=== PATIENT | female | born 1990 | race Caucasian/White ===

== ENCOUNTER 2023-10-25 09:23 | Outpatient (RCR) | payer BC, SELFPAY ==
--- NOTE | ~2023-10-25 | US_ITS ---
EXAMINATION: US OB follow up DATE: 10/25/2023 11:38 INDICATION: Passed due dates TECHNIQUE: Real-time ultrasound of the pelvis was performed. The interpreting radiologist was not pre sent for the study. COMPARISON: None. FINDINGS: There is a single living fetus in vertex presentation. The placenta is posterior. heart rate i s 140 beats per minute (bpm). The amniotic fluid index is 11.8 cm, which is normal. The following biometric data were obtained: BPD: 9.6 cm -> 39 weeks 1 days Head circumference: 34.8 cm -> 40 weeks 3 days Abdominal circumference: 35.8 cm -> 39 weeks 5 days Femur length: 7.8 cm -> 39 weeks 6 days These measurements are concordant. Head circumference to abdominal circumference ratio: 0.97 (normal range 0.90-1.03). Estimated weight: 3879 g (+/-) 582 g or 8 lbs. 9 oz. (+/-) 1lb. 5 oz. IMPRESSION: 1. Single living fetus in vertex presentation with heart rate of 140 bpm. 2. Normal amniotic fluid index of 11.8 cm 3. Estimated weight is 70th percentile by Hadlock criteria when 10/23/2018 is used as the estima juanis date of delivery (BHAVESH). Please correlate with clinical information or earlier ultrasounds for mos t accurate BHAVESH. Reviewed, dictated and finalized at location A. IMPRESSION: 1. Single living fetus in vertex presentation with heart rate of 140 bpm. 2. Normal amniotic fluid index of 11.8 cm 3. Estimated weight is 70th percentile by Hadlock criteria when 10/23/2018 is used as the estimated date of delivery (BHAVESH). Please correlate with clinica l information or earlier ultrasounds for most accurate BHAVESH.
[2023-10-25 11:50] VITALS: BP 109/72; PULSE 95
== END 2024-01-23 23:59 | disposition home or self-care (01) ==
LOC: ANHOBOP 09:23
PROVIDERS: Visit Provider Obstetrics & Gynecology
DX: O48.1 Prolonged pregnancy (principal); Z3A.40 40 weeks gestation of pregnancy
CPT/HCPCS: 59025; 76816

== ENCOUNTER 2023-11-01 04:59 | Inpatient (IN) | payer BC, SELFPAY ==
[2023-11-01] VITALS (119 sets, daily range): BP systolic 78–127; BP diastolic 51–94; PULSE 62–101; RESP 16–20; TEMP 36.3–37.4; O2SAT 95–100; BMI 31.5
[2023-11-01] MEDS: AMPICILLIN 2 GM/NS 100 ML 2 GM/100 ML BAG IVPB (05:50)
[2023-11-01] MEDS: OXYTOCIN 30 UNITS/NS 500 ML 30 UNITS/500 ML BAG IV CONT (05:50)
[2023-11-01] MEDS: LACTATED RINGERS 1,000 ML 125 ML IV CONT ×2 (05:52→07:24)
--- NOTE | 2023-11-01 05:59 | LDADM ---
This patient, Seema Maxwell, was admitted to Labor/Delivery/Recovery 104 on 11/01/23 at 04:59. Plans for labor, pain management and were discussed with patient. Patient/family oriented to hospital policies and general routines including ID bracelet, bed and alarms, visiting hours, pain management, procedures, bathroom and other care routines, personal items, smoking policy, room service/diet and guest tray routines, infant security routines, and visiting hours. Patient/Family are encouraged to report perceived risks to care and to ask questions if they do not understand what they are told or what they should do. See OBIX for further documentation.
[2023-11-01 06:04] LABS: Basophils Percent Auto 0.4 % (0.2-1.2); Eosinophils Absolute Auto 0.2 K/mm3 (0-0.3); Eosinophils Percent Auto 1.5 % (0-4.4); Hematocrit 34.7 % (37.0-47.0); Hemoglobin 11.3 g/dL (12.0-15.0); Immature Granulocyte Absolute 0.03 K/mm3 (0.00-0.031); Immature Granulocyte Percent A 0.3 % (0-0.5); Lymphocytes Absolute Auto 2.02 K/mm3 (0.9-3.2); Lymphocytes Percent Auto 20.7 % (18.3-44.2); Mean Corpuscular HGB Conc 32.6 g/dl (32-36); Mean Corpuscular Hemoglobin 28.2 pg (26-34); Mean Corpuscular Volume 86.5 fl (80-100); Mean Platelet Volume 10.7 fl (7.4-10.4); Neutrophils Absolute Auto 6.5 K/mm3 (1.3-6.7); Neutrophils Percent Auto 67.1 % (45.5-73.1); Platelet Count Result 215 k/mm3 (150-375); Red Blood Count 4.01 M/mm3 (4.2-5.4); Red Cell Distribution Width 13.2 % (11.5-14.5); White Blood Count 9.8 K/mm3 (4.5-10.0)
--- NOTE | 2023-11-01 07:20 | P.PNAN_ITS ---
Anes - Eval Pre Procedure Procedure: labor epidrual Date/Time: 11/01/23 07:20 Surgeon: Anat Pre Op Diagnosis: Labor pain Patient Data Age: 33 Gender: F Height: 1.73 m Weight: 94 kg Last Vital Signs Temp 36.6 C 11/01/23 07:00 Pulse 91 11/01/23 07:15 BP 115/79 11/01/23 07:15 O2 Del Method Room Air 11/01/23 05:58 Allergies Allergy/AdvReac Type Severity Reaction Status Date / Time No Known Allergies Allergy Verified 09/26/23 14:36 Home Medications Medication Instructions Recorded Confirmed Type prenat.vits,vish,ncr-iphu-bailq 1 tablet PO DAILY 09/26/23 10/25/23 History Laboratory Tests 11/01/23 05:54 WBC 9.8 K/mm3 (4.5-10.0) RBC 4.01 L M/mm3 (4.2-5.4) Hgb 11.3 L g/dL (12.0-15.0) Hct 34.7 L % (37.0-47.0) MCV 86.5 fl (80-100) MCH 28.2 pg (26-34) MCHC 32.6 g/dl (32-36) RDW 13.2 % (11.5-14.5) Plt Count 215 k/mm3 (150-375) MPV 10.7 H fl (7.4-10.4) Immature Gran % (Auto) 0.3 % (0-0.5) Neut % (Auto) 67.1 % (45.5-73.1) Lymph % (Auto) 20.7 % (18.3-44.2) [place] % (Auto) 10.0 H % (2.6-8.5) Eos % (Auto) 1.5 % (0-4.4) Baso % (Auto) 0.4 % (0.2-1.2) Lymph # (Auto) 2.02 K/mm3 (0.9-3.2) [place] # (Auto) 1.0 H K/mm3 (0.1-0.6) Eos # (Auto) 0.2 K/mm3 (0-0.3) Baso # (Auto) 0.0 K/mm3 (0.0-0.1) Abs Immat Gran (auto) 0.03 K/mm3 (0.00-0.031) Absolute Neuts (auto) 6.5 K/mm3 (1.3-6.7) Absolute Nucleated RBC 0.000 K/mm3 (0.0-0.012) Nucleated RBC % 0.0 % (0.0-0.2) RPR Pending : gestational age (BHAVESH 10/24/23) Patient hx anesthesia problems: none Family hx anesthesia problems: none Results Review: All pre-operative results and documents have been reviewed as part of the pre- operative evaluation. [facility] Family History Family History Other Patient denies significant medical history Social History Social History Smoking status: Never smoker Substance use: never Do You Feel Safe in your Home?: Yes Lack of Transportation: No Lack of Food: Never True Current Housing: I Have Housing Concerned About Future Housing: No Difficulty Paying Gas/Electric Bills: No Difficulty Paying for Meds: No Currently Unemployed: No Education: Bachelor's Degree Difficulty w/ Childcare or Family Care: No Spiritual care concerns: No Exam Day of Procedure 11/01/23 07:20 Heart: regular rate and rhythm Lungs: normal air movement Neurological: alert and oriented
--- NOTE | 2023-11-01 08:36 | WPDOBADMIT ---
Obstetrics - Admit Note Admission Note: record reviewed. Additions to the history and/or subsequent changes in the physical findings follow. 33 y/o at 41 1/7 weeks here for induction of labor. Oxytocin per protocol. Comfortable with epidural. GBS pos, receiving ampicillin. AVSS NST reactive TOCO: contractions every 2-3 min ABD soft, nontender, gravid, vertex EXT nontender Cervix 5/90/-2. AROM with scant clear fluid. Vertex. A: IUP at 41 1/7 weeks here for induction of labor. GBS pos. P: Oxytocin. Anticipate . Ampicillin.
[2023-11-01] MEDS: AMPICILLIN 1 GM/NS 50 ML 1 GM/50 ML BAG IVPB (09:58)
--- NOTE | 2023-11-01 11:47 | PM.OBPRVD ---
OB - Vaginal Delivery Note Procedure Delivery date: 11/01/23 Events: Positive Group B Strep (GBS) Induction method: Per Pitocin Protocol Delivery augmentation: Rupture of Membranes Delivery monitor: External FHT and External Uterine Route of delivery: Episiotomy description: None Laceration Description: Periurethral (right) and Perineal - 2nd Degree Delivery repair: vicryl (3-0) Specimen: Yes (Cord blood) Quantitative Blood Loss (ml): 160 Anesthesia type: Epidural Disposition: PACU Complications: None Narrative: 33 y/o at 41 1/7 weeks gestation who presented to the hospital for induction of labor. Oxytocin was administered intravenously. Amniotomy was performed with return of clear fluid. She received an epidural for pain control. Her labor progressed and her cervix dilated completely. She pushed with good effort and delivered the 's head to the perineum. A loose nuchal cord was splinted. The body delivered and the cord was reduced. The nose and mouth were bulb suctioned. After a delay, the cord was clamped and cut. The was handed off the field. Cord blood was collected. The placenta delivered spontaneously and was grossly normal in appearance. The usual 3 vessel cord was noted. A second degree midline perineal laceration was sustained. This was reapproximated using 3 0 Vicryl in the usual layered fashion. A single, figure of eight suture of the same material was used to reapproximate a shallow right periurethral laceration. Excellent hemostasis resulted as did excellent reapproximation of the normal anatomy. Needle and instrument counts were correct. The patient was taken to recovery room in stable condition. The infant went to the nursery in stable condition. I was present and scrubbed for the entire delivery. [place] Baby Date of : 11/01/23 Time of : 11:25 Weeks of gestation at delivery: 41 gender: Male Weight (pounds): 8 Weight (ounces): 12 presentation: vertex position: Right Occiput Anterior Placenta delivery description: Spontaneous and Normal Configuration Cord Vessel Description: 3 Vessels, Nuchal Cord (x1), Loose and Delayed Cord Clamping score one minute: 9 score five minutes: 9
[2023-11-01] MEDS: OXYTOCIN 30 UNITS/NS 500 ML 30 UNITS/500 ML BAG 125 UNITS IV CONT (11:53)
--- NOTE | 2023-11-01 12:10 | PM.OBDSVD ---
DS: Admitting Diagnosis Discharge Date 11/02/23 Admitting Diagnosis IUP at 41 1/7 weeks DS: Discharge Diagnosis Discharge Diagnosis (1) (normal spontaneous vaginal delivery): Code(s): O80 - Encounter for full-term uncomplicated delivery Status: Acute OB - DS: Summary OB Procedures : None OB Procedures Intrapartum: Spontaneous Vag Delivery and GBS prophylaxis OB Procedures: : None Peripartum Data Laceration Description: Periurethral (right) and Perineal - 2nd Degree Episiotomy description: None Time Spent with Patient Time attestation: Total time spent providing and/or coordinating discharge services: DS: Data Data Completed and Pending Labs on day of discharge: Labs from last 24 hours 11/01/23 05:54 WBC 9.8 RBC 4.01 L Hgb 11.3 L Hct 34.7 L MCV 86.5 MCH 28.2 MCHC 32.6 RDW 13.2 Plt Count 215 MPV 10.7 H Immature Gran % (Auto) 0.3 Neut % (Auto) 67.1 Lymph % (Auto) 20.7 [place] % (Auto) 10.0 H Eos % (Auto) 1.5 Baso % (Auto) 0.4 Lymph # (Auto) 2.02 [place] # (Auto) 1.0 H Eos # (Auto) 0.2 Baso # (Auto) 0.0 Abs Immat Gran (auto) 0.03 Absolute Neuts (auto) 6.5 Absolute Nucleated RBC 0.000 Nucleated RBC % 0.0 RPR Pending Blood Type O Positive Antibody Screen Negative Discharge Plan Discharge Attending physician on discharge: Rich Coppola Consulting providers: Staci Vazquez; Neha Hall Discharging Clinician: Rich Coppola Patient Disposition: Home, Self-Care Activity: may shower, no straining and pelvic rest Diet: regular Wound Care Instructions: follow printed instructions Discharge Instructions: Education: Mom and Baby Guide Given to: Mother Follow-Up: Call your delivering provider's office for an appointment to be seen in: 6 Weeks Mom and baby should come to the [facility] for the follow-up appointment. Appointment Date/Time: November 03, 2023 at 11:00 am What to expect at your follow-up visit: Physical Assessment Call [phone] if you are unable to keep your appointment time. BREAST CARE: * Wear a snug supportive bra. * For engorgement discomfort: Breast Feeding: * Apply warm moist washcloths * Express milk as needed to relieve engorgement * Wear loose clothing Bottle Feeding: * May apply ice packs * For sore nipples: * Identify correct latch-on * Apply warm moist washcloths before and after nursing * Air dry nipples after nursing * May apply Lansinoh cream to nipples EPISIOTOMY/PERINEAL CARE: * Until bleeding stops, use your nataly bottle after urinating * Change your pad frequently throughout the day * You may take sitz baths several times a day (fill your bathtub with warm water and soak for 20 minutes.) Do NOT bathe in the water * No tub baths until seen by your physician - You may shower ACTIVITY: * Rest as much as possible. * Do not exercise or lift anything heavier than your baby (such as laundry or other children.) * Avoid stairs or driving as much as possible. * Do not put anything into the vagina. No douching, tampons, or sexual activity until seen by physician. NOTIFY PHYSICIAN IF YOU HAVE ANY QUESTIONS OR IF ANY OF THE FOLLOWING SYMPTOMS OCCUR: * If your episiotomy or incision becomes red, swollen, or more painful than what you have experienced in the hospital. * If your vaginal bleeding becomes foul smelling. * If your vaginal bleeding becomes more heavy than a period or if your bleeding changes from pink to bright red. However, you may pass an occasional walnut-sized clot once or twice for the first week . * If you experience a sharp, shooting pain in you calves. * If you discover a hard, reddened area on your breast or if you experience flu-like symptoms. DIET: * Eat regular, well-balanced meals. * Drink plenty of fluids daily. If
[2023-11-01] MEDS: IBUPROFEN 600 MG TABLET PO ×2 (13:34→21:12)
[2023-11-01] MEDS: WITCH HAZEL 40 PADS 1 PAD TOPICAL (13:34)
[2023-11-01] MEDS: BENZOCAINE 20% AER SPR (*SP) 56 GM CAN 1 SPRAY TOPICAL (13:34)
--- NOTE | 2023-11-01 14:53 | OBPPTRN ---
1430-Patient transferred to post room #292 via wheelchair. Support person present. Oriented to unit, room, information board, rooming in, admission packet and security measures. Patient verbalizes understanding.
[2023-11-01] MEDS: DOCUSATE SODIUM 100 MG CAPSULE PO (15:16)
[2023-11-01] MEDS: ACETAMINOPHEN 325 MG TABLET 650 MG PO (15:16)
[2023-11-01 18:29] LABS: Rapid Plasma Reagin Non-Reactive (NonReactive)
[2023-11-02] MEDS: IBUPROFEN 600 MG TABLET PO ×2 (03:49→09:53)
[2023-11-02 04:14] VITALS: BP 107/71; PULSE 73; RESP 18; TEMP 37.2; O2SAT 98
[2023-11-02 05:21] LABS: Hemoglobin 10.5 g/dL (12.0-15.0)
[2023-11-02] MEDS: ACETAMINOPHEN 325 MG TABLET 650 MG PO (05:46)
--- NOTE | 2023-11-02 06:57 | PM.OBPNVD ---
OB - PN: Subj Subjective Date/time seen: 11/02/23 06:57 Patient comments: no complaints and pain well controlled baby status: doing well and nursing well OB - PN: Obj Data Labs 11/02/23 04:03 Labs: Laboratory Results - last 24 hr 11/01/23 11/02/23 05:54 04:03 Hgb 10.5 L Hct 33.0 L RPR Non-reactive Blood Type O Positive Antibody Screen Negative OB - PN A/P Plan day: 1 Plan: routine care, discharge home and follow up 6 weeks Time Spent With Patient Time: Total time spent is greater than 50% in coordination of care (as documented) at patient's floor/unit and/or counseling patient: Time with patient: less than 15 minutes Exam Const: General: cooperative, healthy appearing and comfortable Nutritional Appearance: average body habitus Orientation/consciousness: oriented to person, oriented to place and oriented to time Resp: Effort & Inspection: normal respiratory effort GI: Inspection: normal to inspection
--- NOTE | 2023-11-02 07:40 | WPDANLDPN2 ---
Anes-Prog Note L&D Date/Time: 11/02/23 07:40 Comfortable throughout: labor and delivery Neuraxial method: epidural Epidural/Spinal procedure site: clean & non-tender Neuro status: Neuro function grossly intact. Cardiovascular status: normal Respiratory status: normal Airway patency: baseline Mental status: baseline Post-Op hydration status: normal Vital Signs: Last Vital Signs Temp 37.2 C 11/02/23 04:14 Pulse 73 11/02/23 04:14 Resp 18 11/02/23 04:14 BP 107/71 11/02/23 04:14 Pulse Ox 98 11/02/23 04:14 O2 Del Method Room Air 11/01/23 15:30 Pain score (VAS): 0/10 I/O: Intake & Output 11/01/23 11/01/23 11/02/23 15:59 23:59 07:59 Output Total 210 Balance -210 Post-procedural complaints: none Patient feedback: Patient satisfied with anesthetic care.
[2023-11-02] MEDS: DOCUSATE SODIUM 100 MG CAPSULE PO (08:09)
[2023-11-02] MEDS: MULTIVIT/MIN/PREN/FOL AC/IRON TABLET 1 TAB PO (08:09)
[2023-11-02] MEDS: WITCH HAZEL 40 PADS 1 PAD TOPICAL (08:10)
[2023-11-02] MEDS: BENZOCAINE 20% AER SPR (*SP) 56 GM CAN 1 SPRAY TOPICAL (08:10)
[2023-11-02 08:26] VITALS: BP 102/59; PULSE 74; RESP 18; TEMP 36.7; O2SAT 98
--- NOTE | 2023-11-02 10:19 | PC.NURSE ---
[id number] Consulted with mother concerning needs and she shared her ability to independently latch infant optimally without pain. Mother is feeding appropriately for growth of infant and understands stimulating to eat if needed. Infant has had appropriate feedings in the last 24 hours meets the outcomes for weight, output, blood sugar and jaundice at this time. Reinforced understanding of milk production, transition of milk, signs of adequate intake, transition of stool, prevention/relief of engorgement, plugged ducts, mastitis, responsive watching for feeding cues, the different methods of stimulating to breastfeed 1-3 hours after the start of the last feeding, community resources, and when to call a provider using the resource of the feeding sheet along with the mom and baby guide. Mother voiced understanding of the information shared, is confident to continue effectively her infant at home, when to call for assistance, denies any additional assistance or education at this time. Reported to the Primary RN.
[2023-11-03 11:35] VITALS: BP 103/67; PULSE 76; RESP 16; TEMP 36.6; O2SAT 99
== END 2023-11-02 12:28 | disposition home or self-care (01) | DRG 807 ==
LOC: ANHLDR 12:11 → ANHOB2 11-02 07:43 → ANHLDR 11-05 08:29 → ANHOB2 11-05 08:29
PROVIDERS: Admitting Provider Obstetrics & Gynecology; Visit Provider Obstetrics & Gynecology
DX: O99.824 Streptococcus B carrier state complicating childbirth (principal); Z37.0 Single live birth; Z3A.41 41 weeks gestation of pregnancy; O70.1 Second degree perineal laceration during delivery; O71.82 Other specified trauma to perineum and vulva; O69.81X0 Labor and delivery complicated by cord around neck, without compression, not applicable or unspecified
CPT/HCPCS: 36415; 85014; 85018; 85025; 86592; 86850; 86900; 86901; A9270; J0290; J2590; J2795; J7120